=== PATIENT | female | born 1980 | race Caucasian/White ===

== ENCOUNTER 2016-11-06 12:37 | Emergency (ER) ==
[2016-11-06] MEDS ORDERED: SODIUM CHLORIDE 1,000 ML IV STA ×2 (12:48→13:38)
[2016-11-06 12:52] VITALS: BP 170/130; TEMP 98; BMI 31.6
[2016-11-06 12:59] LABS: BASOPHILS % (AUTO) 0.2 % (0.0-3.0); EOSINOPHILS # (AUTO) 0.1 K/ul (0.0-0.7); EOSINOPHILS % (AUTO) 0.5 % (0.0-7.0); HEMOGLOBIN 16.6 g/dl (12.0-16.0); IMMATURE GRANULOCYTE % (AUTO) 0.5 % (0.0-5.0); LYMPHOCYTES # (AUTO) 3.9 K/uL (0.60-3.4); LYMPHOCYTES % (AUTO) 28.3 (10.0-50.0); MEAN CORPUSCULAR HEMOGLOBIN 29.2 pg (27.0-31.0); MEAN CORPUSCULAR HGB CONC 34.6 (31.8-35.4); MEAN CORPUSCULAR VOLUME 84.5 fl (81.0-99.0); MONOCYTES % (AUTO) 7.2 (0-10); NEUTROPHILS # (AUTO) 8.6 K/ul (2.0-6.9); NEUTROPHILS % (AUTO) 63.3; PLATELET COUNT 330 10^3/uL (140-440); RED BLOOD COUNT 5.68 10^6/ul (4.20-5.40); WHITE BLOOD COUNT 13.64 K/ul (4.6-10.2)
[2016-11-06] MEDS ORDERED: ATIVAN ONE (13:06)
[2016-11-06 13:27] LABS: ACETAMINOPHEN < 3 ug/ml (10-30); ALANINE AMINOTRANSFERASE 14 U/L (12-78); ALBUMIN 4.4 g/dL (3.4-5.0); ALBUMIN/GLOBULIN RATIO 1.07; ALKALINE PHOSPHATASE 97 U/L (42-98); ANION GAP 23.4; ASPARTATE AMINO TRANSFERASE 16 U/L (15-37); BILIRUBIN,TOTAL 0.22 mg/dL (0.00-1.20); BLOOD UREA NITROGEN 14 mg/dL (7-18); BUN/CREATININE RATIO 13.72; CALCIUM 10.6 mg/dL (8.2-10.2); CARBON DIOXIDE 19 mmol/L (21-32); CHLORIDE 102 mmol/L (98-107); CREATININE 1.02 mg/dL (0.60-1.30); GLUCOSE 112 mg/dL (70-110); POTASSIUM 3.4 mmol/L (3.5-5.10); SODIUM 141 mmol/L (136-145); TOTAL PROTEIN 8.5 g/dL (6.4-8.2)
[2016-11-06 13:33] LABS: SALICYLATE 63.3 mg/dL (2.8-20.0)
[2016-11-06] MEDS ORDERED: SODIUM BICARBONATE 8.4% IVP STA (13:34)
[2016-11-06] MEDS ORDERED: SODIUM BICARBONATE 7.5% IVP STA (13:37)
--- NOTE | 2016-11-06 13:42 | ED.PDOC ---
General ED Provider: Dr. NOHEMI ZHANG Chief Complaint: Chest Pain Stated Complaint: CHEST PAIN OVERDOSE/ASPRIN Time Seen by Physician: 12:46 (ARRIVES ANXIOUS AND HYPERVENTILATING , HIGHLY UNCOOPERATIVE DUE TO EXTREME PARANOIA) Mode of Arrival: Wheelchair Information Source: Patient Exam Limitations: No limitations Nursing and Triage Documentation Reviewed and Agree: Yes (STATED SHE TOOK 40 TABLETS OF ARPRIN 325 MG EACH . On methx 72 hours ) Psychological Complaint Exam - Substance Abuse/Use Complaint/Exam Patient Complains Of Substance Withdrawal Of: Amphetamines Onset/Duration: asprin overdose was 2 hours ago meth x 72 hours Abuse Began: see above Increased Use Since: past 2 days of meth use denied ETOH NO OODOR DETECTED Timing: Daily Initial Severity: Moderate Current Severity: Moderate Character: Present: Manic, Fearful, Anxious, Angry, Frustrated. Absent: Lethargic Aggravating: Reports: Recent stress (HOMEESS ) Alleviating: Reports: None Associated Signs And Symptoms: Reports: Hostile, Sleep disturbance, Appetite change, Palpitations Related History: Denies: Suicidal thoughts, Suicidal plan, Suicidal gestures, Homicidal thoughts, Homicidal plan, Homicidal gestures (STATED OVER DOSE WAS DUE TO HER TOOTH ACHE), Prior psych counseling Review of Systems - Review Of Systems Constitutional: Reports: No symptoms Eyes: Reports: No symptoms Ears, Nose, Mouth, Throat: Reports: No symptoms Respiratory: Reports: No symptoms Cardiac: Reports: Palpitations GI: Reports: No symptoms : Reports: No symptoms Musculoskeletal: Reports: No symptoms Skin: Reports: No symptoms Neurological: Reports: Anxiety, Emotional problems Endocrine: Reports: No symptoms Hematologic/Lymphatic: Reports: No symptoms All Other Systems: Reviewed and Negative Past Medical History - Past Medical History Previously Healthy: Yes Endocrine: Reports: Unknown Cardiovascular: Reports: Unknown Respiratory: Reports: Unknown Hematological: Reports: Unknown Gastrointestinal: Reports: Unknown Genitourinary: Reports: Unknown Neuro/Psych: Reports: Unknown Musculoskeletal: Reports: None, Unknown Cancer: Reports: None, Unknown Last Menstrual Period: unknown - Surgical History General Surgical History: Reports: Unknown - Family History Family History: Reports: Unknown - Social History Smoking Status: Current every day smoker Hx Substance Use: Yes (meth x 2 or 3 days) Alcohol Screening: Occasionally Physical Exam - Physical Exam Appearance: Ill-appearing Ill-appearing: Mild Pain Distress: Mild Eyes: ARMANDO, EOMI, Conjunctiva clear ENT: Ears normal, Nose normal, Oropharynx normal Respiratory: Airway patent, Breath sounds clear, Breath sounds equal, Respirations nonlabored Cardiovascular: Tachycardia GI/: Soft, Nontender, No masses, Bowel sounds normal, No Organomegaly Musculoskeletal: Normal strength, ROM intact, No edema, No calf tenderness Skin: Warm, Dry, Normal color Neurological: Sensation intact, Motor intact, Reflexes intact, Cranial nerves intact, Alert, Oriented Psychiatric: Affect appropriate, Mood appropriate Re-Evaluation - Re-Evaluation Time of Re-Evaluation: 14:00 Status: Improved Vital Signs Stable: Yes Pain Level: 0 NO CHEST PAIN Appearance: NAD Lungs: Clear Skin: Warm and Dry Neuro: Alert and Oriented X3 CV: Other (TACHYCARDIC) Physician Notification - Case Discussed Physician Notified: alvin CHAWLA Time of Notification: 14:06 Critical Care Note - Critical Care Note Total Time (mins): 0 Course - Course Hematology/Chemistry: 11/06/16 12:50 11/06/16 12:50 Orders, Labs, Meds: Lab Review 11/06/16 12:50 WBC 13.64 H RBC 5.68 H Hgb 16.6 H Hct 48.0 H MCV 84.5 MCH 29.2 MCHC 34.6 RDW Coeff of Melvin 13.9 Plt Count 330 Immature Gran % (Auto) 0.5 Neut % (Auto) 63.3 Lymph % (Auto) 28.3 Dale % (Auto) 7.2 Eos % (Auto) 0.5 Baso % (Auto) 0.2 Immature Gran # (Auto) 0.1 Neut # 8.6 H Lymph # 3.9 H Dale # 1.0 Eos # 0.1 Baso # 0.0 Sodium 141 Potassium 3.4 L Chloride 102 Carbon Dioxide 19 L Anion Gap 23.4 BUN 14 Creatinine 1.02 Estimated GFR (MDRD) 61.00 BUN/Creatinine Ratio 13.72 Glucose 112 H Calcium 10.6 H Total Bilirubin 0.22 AST 16 ALT 14 Alkaline Phosphatase 97 Total Protein 8.5 H Albumin 4.4 Globulin 4.1 Albumin/Globulin Ratio 1.07 Salicylate Level mg/dL 63.3 H* Acetaminophen < 3 L Plasma/Serum Alcohol < 10.0 Orders Category Date Time Status ABG DRAW REQUEST Stat CARDIO 11/06/16 12:48 Ordered EKG-(ED ONLY) Stat CARDIO 11/06/16 12:47 Ordered ED SUBSTATION OPERATOR TRANSFORMING APPLIED ONCE EMERGENCY 11/06/16 12:47 Active ED IV/MEDIPORT/POWERPORT .ONCE EMERGENCY 11/06/16 12:47 Active ABG Stat LAB 11/06/16 12:48 Ordered ACETAMINOPHEN Stat LAB 11/06/16 12:50 Completed BLOOD ALCOHOL Stat LAB 11/06/16 12:50 Completed CBC W/ AUTO DIFF Stat LAB 11/06/16 12:50 Completed COMPREHENSIVE METABOLIC PANEL Stat LAB 11/06/16 12:50 Completed DRUG SCREEN, URINE, RAPID Stat LAB 11/06/16 13:35 Received SALICYLATE Stat LAB 11/06/16 12:50 Completed URINALYSIS C & S IF INDICATED Stat LAB 11/06/16 13:35 Received 0.9 % Sodium Chloride [Saline Flush] MEDS 11/06/16 12:47 Ordered 1 syr IVF PRN PRN Lorazepam Inj [Ativan] MEDS 11/06/16 13:06 Discontinued 2 mg .ROUTE .STK-MED ONE Sodium Bicarb 7.5% [Sodium Bicarbonate 7.5%] MEDS 11/06/16 13:37 Discontinued 44.6 meq IVP ONCE STA Sodium Chloride 0.9% [Sodium Chloride] 1,000 ml MEDS 11/06/16 12:48 Discontinued IV 125 mls/hr Sodium Chloride 0.9% [Sodium Chloride] 1,000 ml MEDS 11/06/16 13:38 Active IV 250 mls/hr Medications Generic Name Dose Route Start Last Admin Trade Name Freq PRN Reason Stop Dose Admin Sodium Chloride 1,000 mls @ 250 mls/hr 11/06/16 13:38 11/06/16 13:58 Sodium Chloride IV 11/06/16 17:37 250 mls/hr .Q4H STA Administration Sodium Chloride 1 syr 11/06/16 12:47 11/06/16 13:17 Saline Flush IVF 1 syr PRN PRN Administration To flush IV Discontinued Medications Generic Name Dose Route Start Last Admin Trade Name Freq PRN Reason Stop Dose Admin Sodium Chloride 1,000 mls @ 125 mls/hr 11/06/16 12:48 11/06/16 13:17 Sodium Chloride IV 11/06/16 20:47 125 mls/hr .Q8H STA Administration Sodium Bicarbonate 44.6 meq 11/06/16 13:37 11/06/16 13:45 Sodium Bicarbonate 7.5% IVP 11/06/16 13:38 44.6 meq ONCE STA Administration Vital Signs: Temp Pulse Resp BP Pulse Ox 11/06/16 12:45 98.0 F 143 H 24 170/130 H 100 Departure - Departure Time of Disposition: 13:46 Disposition: TSF SHORT-TRM HOSP Discharge Problem: Chest pain, Aspirin overdose Instructions: Chest Pain (ED) Condition: Good Pt referred to PMD for follow-up: Yes Discharge Problem: Aspirin overdose Qualifiers: Encounter type: initial encounter
[2016-11-06 14:26] LABS: COCAIN SCREEN,URINE NEGATIVE (NEGATIVE)
[2016-11-06 14:28] LABS: BILIRUBIN,URINE Negative (NEGATIVE); KETONES,URINE Negative (NEGATIVE); LEUKOCYTE ESTERASE ,URINE 2+ (NEGATIVE); NITRITE,URINE Negative (NEGATIVE); PH,URINE 5.5 (5-9); PROTEIN,URINE Negative (NEGATIVE); URINE, BLOOD Trace-intact (NEGATIVE)
[2016-11-06 14:33] LABS: ADD URINE MICROSCOPIC YES
== END 2016-11-06 15:00 | disposition short-term general hospital (02) ==
LOC: ED 12:37
DX: R07.9 Chest pain, unspecified (principal); T39.011A Poisoning by aspirin, accidental (unintentional), initial encounter; R00.0 Tachycardia, unspecified; R00.2 Palpitations; K08.89 Other specified disorders of teeth and supporting structures; F17.210 Nicotine dependence, cigarettes, uncomplicated
CPT/HCPCS: 36415; 80053; 80306; 80307; 81001; 85025; 93005; 93010; 96361; 96365; 96374; 96375; 99285

== ENCOUNTER 2016-11-06 14:59 | Outpatient (CLI) ==
[2016-11-06 12:52] VITALS: BMI 31.6
== END 2016-11-06 15:00 ==
LOC: AMBL 14:59
PROVIDERS: ATTEND Internal Medicine
DX: T39.011A Poisoning by aspirin, accidental (unintentional), initial encounter (principal); T43.621A Poisoning by amphetamines, accidental (unintentional), initial encounter